=== PATIENT | female | born 1940 | race Caucasian/White ===

== ENCOUNTER → 2017-03-10 | Outpatient (CLI) | payer MEDICARE, OTHER ==
[2017-03-10 09:43] LABS: CALCIUM LEVEL 10.2 MG/DL (8.8-10.2); CREATININE FOR GFR 1.15 MG/DL (0.55-1.02); GLOMERULAR FILTRATION RATE 49.1 (>39); POTASSIUM SERUM 3.4 MEQ/L (3.5-5.1)
--- NOTE | 2017-03-10 11:30 | REP ---
MR BRAIN WITHOUT AND WITH CONTRAST: HISTORY: Meningioma. CONTRAST: ProHance 7 mL. COMPARISON: 03/13/2016. The patient is status post right frontal cranioplasty. Areas of increased signal intensity on T2-weighted images are present in the basal ganglia and thalami. These represent old lacunar infarctions. Decreased signal intensity on T2 gradient echo images is present in the right basal ganglia and thalamic infarctions and in the right isabel. 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 Areas of increased signal intensity on T2-weighted images are present in the periventricular and subcortical white matter. This represents small vessel ischemic disease. There is no acute intraparenchymal hemorrhage, acute infarct, mass, or midline shift. There is no abnormal enhancement. The ventricular system and cortical sulci are dilated consistent with moderate volume loss. There is no extracerebral collection. The sinuses are clear. IMPRESSION: 1. There is no recurrent tumor. 2. 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 3. Small vessel ischemic disease. 4. Moderate volume loss. Signed by Kb Vidales MD 03/10/2017 11:36 A
== END ==
LOC: M LAB 08:50
PROVIDERS: ATTEND Physician Assistant Surgical
DX: D32.9 Benign neoplasm of meninges, unspecified (principal)
CPT/HCPCS: 36415; 70553; 80048; A9576

== ENCOUNTER → 2019-05-17 | Outpatient (REF) | payer MEDICARE, OTHER ==
[2019-05-17 10:51] LABS: HEMATOCRIT 33.4 % (36.0-47.0); HEMOGLOBIN 10.6 g/dl (12.0-15.5); MEAN CORPUSCULAR HEMOGLOBIN 31.6 pg (27.0-33.0); MEAN CORPUSCULAR HGB CONC 31.7 g/dl (32.0-36.5); MEAN CORPUSCULAR VOLUME 99.7 fl (80.0-96.0); PLATELET COUNT, AUTOMATED 295 10^3/uL (150-450); RED BLOOD COUNT 3.35 10^6/uL (4.00-5.40); WHITE BLOOD COUNT 6.4 10^3/uL (4.0-10.0)
[2019-05-17 11:17] LABS: CALCIUM LEVEL 9.6 MG/DL (8.8-10.2); CREATININE FOR GFR 0.99 MG/DL (0.55-1.30); GLOMERULAR FILTRATION RATE 58.1 (>39); POTASSIUM SERUM 4.1 MEQ/L (3.5-5.1)
== END ==
PROVIDERS: ATTEND Internal Medicine
DX: D64.9 Anemia, unspecified (principal)

== ENCOUNTER → 2019-05-24 | Outpatient (REF) | payer MEDICARE, OTHER ==
[2019-05-24 09:29] LABS: HEMATOCRIT 33.7 % (36.0-47.0); HEMOGLOBIN 10.9 g/dl (12.0-15.5); MEAN CORPUSCULAR HEMOGLOBIN 31.9 pg (27.0-33.0); MEAN CORPUSCULAR HGB CONC 32.3 g/dl (32.0-36.5); MEAN CORPUSCULAR VOLUME 98.5 fl (80.0-96.0); PLATELET COUNT, AUTOMATED 262 10^3/uL (150-450); RED BLOOD COUNT 3.42 10^6/uL (4.00-5.40); WHITE BLOOD COUNT 3.4 10^3/uL (4.0-10.0)
[2019-05-24 09:46] LABS: CALCIUM LEVEL 9.3 MG/DL (8.8-10.2); CREATININE FOR GFR 0.98 MG/DL (0.55-1.30); GLOMERULAR FILTRATION RATE 58.7 (>39); POTASSIUM SERUM 3.6 MEQ/L (3.5-5.1)
== END ==
PROVIDERS: ATTEND Internal Medicine
DX: I67.9 Cerebrovascular disease, unspecified (principal)